=== PATIENT | female | born 1965 | race Caucasian/White ===

== ENCOUNTER 2016-10-11 15:12 | Outpatient (CLI) | payer BC | END 2016-10-11 20:58 | disposition home or self-care (01) | LOC: SMA 15:12 | PROVIDERS: ATTEND Family Medicine | DX: N64.4 Mastodynia (principal); R92.2 Inconclusive mammogram | CPT/HCPCS: G0204 ==

== ENCOUNTER 2016-10-16 09:15 | Outpatient (CLI) | payer BC | END 2016-10-16 18:45 | disposition home or self-care (01) | LOC: SUS 09:15 | PROVIDERS: ATTEND Family Medicine | DX: N64.4 Mastodynia (principal) | CPT/HCPCS: 76641 ==

== ENCOUNTER 2017-11-21 14:53 | Outpatient (CLI) | payer BC | END 2017-11-21 20:13 | disposition home or self-care (01) | LOC: SMA 14:53 | PROVIDERS: ATTEND Family Medicine | DX: Z12.31 Encounter for screening mammogram for malignant neoplasm of breast (principal) | CPT/HCPCS: 77067 ==

== ENCOUNTER → 2019-03-27 | Outpatient (CLI) | payer BC | END | disposition home or self-care (01) | LOC: SMA 09:20 | PROVIDERS: ATTEND Family Medicine | DX: Z12.31 Encounter for screening mammogram for malignant neoplasm of breast (principal) | CPT/HCPCS: 77067 ==